=== PATIENT | male | born 1960 | race Caucasian/White ===

== ENCOUNTER → 2024-08-30 10:23 | Outpatient (CLI) | payer BC, SELFPAY ==
[2024-08-30 11:44] LABS: C-Reactive Protein Quant < 0.5 mg/dL (<1.0)
[2024-08-30 13:18] LABS: Erythrocyte Sedimentation Rate 2 MM/HR (0-15)
== END ==
PROVIDERS: PCP Internal Medicine; Referring Provider Orthopaedic Surgery Adult Reconstructive Orthopaedic Surgery; Visit Provider Orthopaedic Surgery Adult Reconstructive Orthopaedic Surgery
DX: M25.551 Pain in right hip (principal)
CPT/HCPCS: 36415; 82495; 83018; 85651; 86140